=== PATIENT | female | born 1980 | race Caucasian/White ===

== ENCOUNTER 2017-11-13 16:27 | Emergency (ER) | payer OTHER ==
[~2017-11-13] VITALS: Ht 160 cm; Wt 128.5 kg
[2017-11-13 16:29] VITALS: Ht 160 cm; Wt 128.5 kg
[2017-11-13] MEDS ORDERED: IBUPROFEN 200 MG TAB PO STA (16:43)
[2017-11-13] MEDS ORDERED: OXYCODONE HCL IR 5 MG TAB (IMMEDIATE RELEASE) PO STA (16:43)
[2017-11-13] MEDS ORDERED: LEVO137T3 PO (16:45)
[2017-11-13] MEDS ORDERED: OMEP20CA9 PO (16:45)
[2017-11-13] MEDS ORDERED: BCPILLS PO (16:45)
[2017-11-13] MEDS ORDERED: LEVO50TA6 PO (16:45)
[2017-11-13] MEDS ORDERED: LIDOCAINE HCL 2% JELLY 30 ML TUBE EXT ONE (16:45)
[2017-11-13] MEDS ORDERED: SERT50TA PO (16:45)
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
[2017-11-13] MEDS ORDERED: OXYC1TAB3 PO (17:16)
[2017-11-13 17:30] VITALS: BP 156/87; PULSE 98; TEMP 36.7; O2SAT 97
== END 2017-11-13 17:31 | disposition home or self-care (01) ==
LOC: C.EDB 16:28 → C.EDD 17:31
DX: T23.209A Burn of second degree of unspecified hand, unspecified site, initial encounter (principal); X17.XXXA Contact with hot engines, machinery and tools, initial encounter